=== PATIENT | male | born 1980 ===

== ENCOUNTER 2017-04-20 07:34 | Day surgery (SDC) | payer MEDICAID ==
[2017-04-20 08:24] VITALS: BMI 25.7
[2017-04-20 08:44] VITALS: O2SAT 100
[2017-04-20] MEDS ORDERED: Propofol 10 mg/ml Inj (20 ML) ONE (09:11)
[2017-04-20] MEDS ORDERED: Lactated Ringer's 500 ML IV SCH (09:15)
[2017-04-20 11:19] VITALS: BP 111/75; PULSE 49; RESP 16; TEMP 97.8
== END 2017-04-20 11:00 | disposition home or self-care (01) ==
LOC: C.ENDO 07:34
PROVIDERS: ATTEND Internal Medicine Gastroenterology
DX: K57.30 Diverticulosis of large intestine without perforation or abscess without bleeding (principal); K52.9 Noninfective gastroenteritis and colitis, unspecified; K64.0 First degree hemorrhoids; R10.84 Generalized abdominal pain; J45.909 Unspecified asthma, uncomplicated
CPT/HCPCS: 45380; 82948; 87045; 87177; 87209; 87230; 88305; J2704; J7120